=== PATIENT | female | born 1965 | race Caucasian/White ===

== ENCOUNTER 2017-07-09 03:15 | Inpatient (IN) | payer OTHER ==
[~2017-07-09] VITALS: Ht 167.6 cm; Wt 105.2 kg
[~2017-07-09 03:15] MED LIST: ASPI-1169 PO; ASPI-992 PO; BENA20TA78 PO; BLOO-697 IN; CARV6.252 PO; DIGO250T PO; FURO-145 PO; METF500T4 PO; OMEG1CAP PO; OMEP-99 PO; SPIR25TA4 PO; TRAM50TA2 PO; VITA100012 PO
[2017-07-09] MEDS ORDERED: NITROGLYCERIN PACKET 1 GM PACKET TD ONE (03:30)
--- NOTE | 2017-07-09 03:30 | NUR ---
PT RECEIVED FROM [facility] C/O SOB/LOW 02 SAT. PAIN IN THE LEFT HIP 03/10 WHEN MOVING. SOB WITH SHALLOW BREATHS. BP IS NORMAL WITH A-FIB 130-150'S. A/OX3 BUT HARD TO MAKE NEEDS KNOWN. WILL CONTINUE TO MONITOR FOR ANY CHANGES
[2017-07-09] MEDS ORDERED: DILTIAZEM HCL 25 MG IV IV STA (03:39)
[2017-07-09] MEDS ORDERED: NITROGLYCERIN PACKET 1 GM PACKET ONE (03:40)
--- NOTE | 2017-07-09 04:00 | NUR ---
PT OFF TO CT/XRAY
[2017-07-09] MEDS ORDERED: DILTIAZEM HCL 25 MG IV ONE ×3 (04:02→05:28)
[2017-07-09 04:12] LABS: BASOPHILS % (AUTO) 0.5 % (0.0-2.0); EOSINOPHILS # (AUTO) 0.5 /CMM (0.0-0.7); EOSINOPHILS % (AUTO) 6.6 % (0.0-6.0); HEMATOCRIT 32 % (33-45); HEMOGLOBIN 10.8 g/dL (11.5-14.8); LYMPHOCYTES # (AUTO) 1.4 /CMM (0.8-4.8); LYMPHOCYTES % (AUTO) 17.8 % (20.0-44.0); MEAN CORPUSCULAR HEMOGLOBIN 31 PG (26.0-33.0); MEAN CORPUSCULAR HGB CONC 34 g/dl (31.0-36.0); MEAN CORPUSCULAR VOLUME 91 fL (82-100); MONOCYTES # (AUTO) 0.5 /CMM (0.1-1.30); MONOCYTES % (AUTO) 5.9 % (2.0-12.0); NEUTROPHILS # (AUTO) 5.3 /CMM (1.8-8.9); NEUTROPHILS % (AUTO) 69.2 % (43.0-81.0); PLATELET COUNT (AUTO) 234 /CMM (150-450); RDW COEFFICIENT OF VARIATION 20.8 (11.5-15.0); WHITE BLOOD COUNT (AUTO) 7.7 K/uL (4.3-11.0)
[2017-07-09 04:22] LABS: CALCIUM, SERUM 9.6 mg/dL (8.5-10.1); CARBON DIOXIDE 24 mmol/L (21-32); CHLORIDE 99 mmol/L (98-107); CREATININE 1.8 mg/dL (0.6-1.3); GLUCOSE 139 mg/dL (74-106); POTASSIUM 5.8 mmol/L (3.5-5.1); SODIUM SERUM 136 mmol/L (136-145); UREA NITROGEN, BLOOD 31 mg/dL (7-18)
[2017-07-09 04:24] LABS: INR 1.87 (0.87-1.13); PROTHROMBIN TIME 19.6 SECS (9.5-12.7)
[2017-07-09 04:30] LABS: TROPONIN I 0.021 ng/mL (0.00-0.056)
[2017-07-09 04:35] LABS: ALANINE AMINOTRANSFERASE 66 U/L (12-78); ALBUMIN 4.1 g/dL (3.4-5.0); ALCOHOL, BLOOD < 3 mg/dL (0-0); ALKALINE PHOSPHATASE 90 U/L (46-116); ASPARTATE AMINOTRANSFERASE 81 U/L (15-37); B-TYPE NATRIURETIC PEPTIDE 13656 PG/ML (0-125); BILIRUBIN,DIRECT 0.9 mg/dL (0.0-0.2); BILIRUBIN,TOTAL 2.4 mg/dL (0.2-1.0); TOTAL PROTEIN, SERUM 7.9 g/dL (6.4-8.2)
[2017-07-09] MEDS ORDERED: ONDANSETRON HCL/PF 4 MG/2 ML VIAL ONE (04:41)
[2017-07-09] MEDS ORDERED: DEXTROSE 50%-WATER 50 ML DISP.SYRIN ONE (04:41)
[2017-07-09] MEDS ORDERED: FUROSEMIDE 40 MG/4 ML VIAL ONE (04:41)
[2017-07-09] MEDS ORDERED: SODIUM POLYSTYRENE SULFONATE 15 G/60 ML BOTTLE ONE (04:41)
[2017-07-09] MEDS ORDERED: INSULIN REGULAR, HUMAN 100 UNIT/ML 10 ML VIAL ONE (04:42)
[2017-07-09] MEDS ORDERED: DEXTROSE 50%-WATER 50 ML DISP.SYRIN IV ONE (05:00)
[2017-07-09] MEDS ORDERED: FUROSEMIDE 40 MG/4 ML VIAL IV ONE (05:00)
[2017-07-09] MEDS ORDERED: ONDANSETRON HCL/PF 4 MG/2 ML VIAL IVP ONE (05:00)
[2017-07-09] MEDS ORDERED: DILTIAZEM HCL IV 125 MG in IV D5W 100 ML IV ONE (05:00)
[2017-07-09] MEDS ORDERED: INSULIN REGULAR, HUMAN 100 UNIT/ML 10 ML VIAL IV ONE (05:00)
[2017-07-09] MEDS ORDERED: SODIUM POLYSTYRENE SULFONATE 15 G/60 ML BOTTLE PO ONE (05:00)
--- NOTE | 2017-07-09 06:08 | NUR ---
REPORT GIVEN TO STEVEN DENNIS
[2017-07-09 06:20] VITALS: BP_SYST 105; BP_SYST 146; BP_DIAS 127; BP_DIAS 63
--- NOTE | 2017-07-09 06:20 | NUR ---
WINE SPECIALIST NOTES RECEIVED PATIENT FROM ER VIA GURNEY, ASSISTED TO BED 112-2 BY STAFF, TOLERATED TRANSFER WELL. PATIENT ON O2 VIA NC @ 4LPM, TOLERATING WELL. 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 NOTED WITH LEFT AC PERIPHERAL IV #22G, PATENT AND INTACT. SKIN ASSESSMENT PERFORMED, INTACT. PLAN OF CARE DISCUSSED WITH THE PATIENT, WHO AGREES WITH THE PLAN OF CARE. AWAITING ADMISSION ORDERS. CALL LIGHT LEFT WITHIN EASY REACH, BED IN LOWEST AND LOCKED POSITION. WILL CONTINUE TO CLOSELY MONITOR.
[2017-07-09] MEDS ORDERED: DEXTROSE 50%-WATER 50 ML DISP.SYRIN IV PRN (07:00)
[2017-07-09] MEDS ORDERED: ACETAMINOPHEN 325 MG TABLET PO PRN (07:00)
[2017-07-09] MEDS ORDERED: MAG HYDROX/AL HYDROX/SIMETH 30 ML UDC PO PRN (07:00)
[2017-07-09] MEDS ORDERED: MAGNESIUM HYDROXIDE 30 ML UDC PO PRN (07:00)
[2017-07-09] MEDS ORDERED: Z GUARD REMEDY 2 OZ OINT TP PRN (07:00)
[2017-07-09] MEDS ORDERED: ONDANSETRON HCL/PF 4 MG/2 ML VIAL IVP PRN (07:00)
--- NOTE | 2017-07-09 07:10 | NUR ---
RN INITIAL NOTES: REC'D PT AWAKE ON BED, A/O X 3, C/O PAIN ON LEFT HIP 01/07. ON NC AT 4LPM, NO SOB. ON TELEMONITOR, AFIB UNCONTROLLED, HR 122 BPM. HAS L AC G22, PL, PATENT & INTACT W/ NO S/SX OF INFECTION/INFILTRATION NOTED, ON CARDIZEM DRIP X 5 MG/HR INFUSING WELL. PROVIDED COMFORT & SAFETY MEASURES. BED KEPT LOW & IN LOCKED POS. CALL LIGHT PLACED W/IN REACH. WILL CONTINUE TO MONITOR AND ATTEND PT NEEDS.
[2017-07-09 08:00] VITALS: BP 106/74
[2017-07-09] MEDS ORDERED: DILTIAZEM HCL IV 125 MG in IV D5W 100 ML IV PRN (08:30)
[2017-07-09] MEDS: PANTOPRAZOLE 40 MG TABLET.DR PO SCH (08:43)
[2017-07-09] MEDS: FUROSEMIDE 40 MG/4 ML VIAL IV SCH ×2 (08:43→21:57)
[2017-07-09] MEDS: ASPIRIN 325 MG TABLET PO SCH (08:43)
[2017-07-09] MEDS: BLOOD SUGAR DIAGNOSTIC 1 EACH STRIP VI SCH ×4 (08:43→21:59)
[2017-07-09] MEDS: INSULIN REGULAR, HUMAN 100 UNIT/ML 3 ML VIAL SQ PRN ×3 (08:47→17:36)
[2017-07-09] MEDS: HYDROCODONE/APAP 5/325MG 1 EACH TABLET PO PRN ×2 (08:53→21:59)
[2017-07-09] MEDS ORDERED: CARVEDILOL 6.25 MG TABLET PO SCH (09:00)
[2017-07-09] MEDS: DIGOXIN 0.25 MG TABLET PO SCH (09:58)
--- NOTE | 2017-07-09 11:58 | NUR ---
RN NOTES: PT SEEN & EXAMINED BY DR. BELLO. Addendum: 07/09/17 at 1230 by ANT CERON RN PER DR. BELLO, DC COREG 6.25 MG PO BID.
[2017-07-09 12:00] VITALS: BP 102/69
[2017-07-09 12:44] LABS: CALCIUM, SERUM 8.7 mg/dL (8.5-10.1); CREATININE 1.7 mg/dL (0.6-1.3); POTASSIUM 3.5 mmol/L (3.5-5.1)
--- NOTE | 2017-07-09 12:53 | NUR ---
RN NOTES: PT SEEN & EXAMINED BY DR. CARNEY W/ ORDERS TO START PT ON IVF 1/2 NS X 80 CC/HR.
[2017-07-09] MEDS: IV 1/2NS 1000 ML 1,000 ML IV PRN (13:31)
[2017-07-09] MEDS: METOPROLOL TARTRATE 25 MG TABLET PO SCH ×2 (13:33→17:39)
--- NOTE | 2017-07-09 14:00 | NUR ---
RN NOTES: PER [employer], PT IS RETAINING URINE >300 CC. SPOKE W/ THE PT AND EXPLAINED TO HER THAT SHE MIGHT BE PROBABLY RETAINING, OFFERED STRAIGHT CATH BUT PT REFUSED.
[2017-07-09 14:03] LABS: THYROID STIMULATING HORMONE 14.839 uIU/mL (0.358-3.74)
[2017-07-09 16:00] VITALS: BP 108/83
--- NOTE | 2017-07-09 17:00 | NUR ---
RN NOTES: PT SIGNED CONSENT FOR EGD, ANESTHESIA AND BLOOD TRANSFUSION. PT VERBALIZED UNDERSTANDING ABOUT THE PROCEDURES.
--- NOTE | 2017-07-09 18:50 | NUR ---
RN CLOSING NOTES: NO ACUTE CHANGES NOTED W/IN SHIFT. PT TOLERATED NC AT 3LPM, NO SOB. ON TELEMONITOR, STILL AFIB UNCONTROLLED. L AC G22, PL, KEPT PATENT & INTACT W/ NO S/SX OF INFECTION/INFILTRATION NOTED, OFF CARDIZEM DRIP, ON 07/02 NS X 80 CC/HR INFUSING WELL. KEPT WELL RESTED. PT INSTRUCTED NPO POST MIDNIGHT FOR PROCEDURE TOMORROW W/ VERBALIZATION OF UNDERSTANDING. BED KEPT LOW & IN LOCKED POS. CALL LIGHT PLACED W/IN REACH. NEEDS ATTENDED. WILL ENDORSE TO PM RN FOR CHRISTINA.
--- NOTE | 2017-07-09 19:20 | NUR ---
RN INITIAL NOTE RECEIVED PT IN NO ACUTE DISTRESS IN BED. PT IS A/O X 3 AND ABLE TO MAKE NEEDS KNOWN. PT IS ON TELE WITH AFIB ON THE MONITOR. PT IS ON O2 VIA NC @ 4LPM AND TOLERATING WELL. PT NOT C/O ANY SOB, DIFFICULTY BREATHING OR PAIN AT THIS TIME. PT HAS LAC 22G THAT IS CLEAN DRY INTACT AND PATENT WITH 1/2 NS @ 80ML/HR. BED IN LOW LOCK POSITION WITH RIALS UP X 2. CALL LIGHT WITHIN REACH AND ALL SAFETY MEASURES ENSURED AND CARRIED OUT. ALL NEEDS MET, ALL ORDERS CARRIED OUT. WILL CONTINUE TO MONITOR PT.
[2017-07-09 20:00] VITALS: BP 101/73
--- NOTE | 2017-07-09 22:00 | NUR ---
RN NOTE PT REFUSED TO HAVE EGD TOMORROW. EDUCATED PT ON IMPORTANCE OF PROCEDURE WITH RISKS AND BENEFITS. PT STILL REFUSED. WILL NOTIFY MD.
[2017-07-09] MEDS: *INSULIN REGULAR(HUMULIN R)HUM 100 UNIT/ML VIAL SQ PRN (22:08)
[2017-07-10] VITALS (7 sets, daily range): BP systolic 97–133; BP diastolic 52–89
[2017-07-10 01:14] LABS: APPEARANCE,URINE CLEAR (CLEAR); BILIRUBIN,URINE NEGATIVE (NEGATIVE); BLOOD, URINE NEGATIVE Ery/uL (NEGATIVE); COLOR,URINE YELLOW (YELLOW); KETONES,URINE NEGATIVE (NEGATIVE); LEUKOCYTE ESTERASE ,URINE NEGATIVE (NEGATIVE); NITRITE, URINE NEGATIVE (NEGATIVE); PH,URINE 5.5 (5.0-8.0); PROTEIN,URINE NEGATIVE (NEGATIVE); UGLUCOSE NEGATIVE (NEGATIVE); UROBILINOGEN,URINE 0.2 EU/dL (0.2)
[2017-07-10 01:16] LABS: CREATININE, URINE 32.6 MG/DL (30.0-125.0); URINE TOTAL PROTEIN 8.1 mg/dL (0-11.9)
[2017-07-10 02:36] LABS: EOSINOPHIL,URINE None Seen
[2017-07-10] MEDS: BLOOD SUGAR DIAGNOSTIC 1 EACH STRIP VI SCH ×4 (06:41→21:06)
[2017-07-10] MEDS: PANTOPRAZOLE 40 MG TABLET.DR PO SCH (06:41)
[2017-07-10] MEDS: METOPROLOL TARTRATE 25 MG TABLET PO SCH ×4 (06:41→17:58)
--- NOTE | 2017-07-10 07:19 | NUR ---
RN CLOSING NOTE PT REMAINS IN NO ACUTE DISTRESS IN BED. PT DID NOT HAVE ANY SIGNIFICANT CHANGE IN CONDITION DURING SHIFT. ALL NEEDS MET, ALL ORDERS CARRIED OUT. WILL ENDORSE CARE TO AM RN FOR CONTINUITY OF CARE.
--- NOTE | 2017-07-10 07:30 | NUR ---
TD RN OPENING RECEIVED PATIENT A/OX4 DENIES SOB, DIFFICULTY BREATHING AT THIS TIME. STATES CONSTANT PAIN IN HIPS. ASSISTED WITH NON PHARM MEASURES FOR COMFORT. PATIENT NEEDS IN REACH, BED LOWERED AND LOCKED. TELE ON AND OFF CONTROLLED/UNCONTROLLED 113 AFIB. PATIENT NS 4LPM WILL TITRATE TOLERATED. WILL ROUND PRN.
[2017-07-10 07:34] LABS: BASOPHILS % (AUTO) 0.4 % (0.0-2.0); EOSINOPHILS # (AUTO) 0.6 /CMM (0.0-0.7); EOSINOPHILS % (AUTO) 8.1 % (0.0-6.0); HEMATOCRIT 29 % (33-45); HEMOGLOBIN 9.9 g/dL (11.5-14.8); LYMPHOCYTES # (AUTO) 1.5 /CMM (0.8-4.8); LYMPHOCYTES % (AUTO) 21.9 % (20.0-44.0); MEAN CORPUSCULAR HEMOGLOBIN 31 PG (26.0-33.0); MEAN CORPUSCULAR HGB CONC 34 g/dl (31.0-36.0); MEAN CORPUSCULAR VOLUME 91 fL (82-100); MONOCYTES # (AUTO) 0.5 /CMM (0.1-1.30); MONOCYTES % (AUTO) 6.9 % (2.0-12.0); NEUTROPHILS # (AUTO) 4.3 /CMM (1.8-8.9); NEUTROPHILS % (AUTO) 62.7 % (43.0-81.0); PLATELET COUNT (AUTO) 227 /CMM (150-450); RDW COEFFICIENT OF VARIATION 20.9 (11.5-15.0); RED BLOOD CELL COUNT(AUTO) 3.18 MIL/uL (4.0-5.2); WHITE BLOOD COUNT (AUTO) 6.9 K/uL (4.3-11.0)
[2017-07-10 08:16] LABS: ALBUMIN 3.7 g/dL (3.4-5.0); BILIRUBIN,DIRECT 0.6 mg/dL (0.0-0.2); BILIRUBIN,TOTAL 1.6 mg/dL (0.2-1.0); CALCIUM, SERUM 8.5 mg/dL (8.5-10.1); CREATININE 1.6 mg/dL (0.6-1.3); MAGNESIUM 1.3 mg/dL (1.8-2.4); PHOSPHORUS 4.4 mg/dL (2.5-4.9); TOTAL PROTEIN, SERUM 7.5 g/dL (6.4-8.2)
[2017-07-10] MEDS: DIGOXIN 0.25 MG TABLET PO SCH (08:23)
[2017-07-10] MEDS: IV 1/2NS 1000 ML 1,000 ML IV PRN (08:23)
[2017-07-10] MEDS: ASPIRIN 325 MG TABLET PO SCH (08:23)
[2017-07-10] MEDS: FUROSEMIDE 40 MG/4 ML VIAL IV SCH ×2 (08:24→21:06)
[2017-07-10] MEDS: HYDROCODONE/APAP 5/325MG 1 EACH TABLET PO PRN ×2 (08:27→14:16)
--- NOTE | 2017-07-10 08:28 | NUR ---
TD RN NOTES PATIENT REFUSING TO HAVE AN EGD. CALLED SURGERY AND PER RN THEY DO NOT HAVE AN OPENING TODAY EVEN FOR PATIENT. CHANGED NPO TO PREVIOUS CARDIAC ORDER. WILL NOTIFY .
--- NOTE | 2017-07-10 10:21 | NUR ---
TD RN NOTES SPOKE TO PHARMACY. THEY HAVE TO BRING POTASSIUM REPLACEMENT UP. WILL HANG ONCE PROVIDED
[2017-07-10] MEDS: POTASSIUM CL. PREMIX PERIPHER. 50 ML IV SCH ×2 (11:19→13:05)
[2017-07-10] MEDS: INSULIN REGULAR, HUMAN 100 UNIT/ML 3 ML VIAL SQ PRN (11:34)
[2017-07-10] MEDS: Magnesium 1GM/D5W 100ML PREMIX 100 ML IV SCH ×2 (14:15→15:37)
--- NOTE | 2017-07-10 19:02 | NUR ---
MOTEL FRONT DESK ATTENDANT CLOSING PATIENT STALE. ALL DUE MEDS GIVEN AND ALL NEEDS MET. PATIENT PAIN CONTROLLED WITH PRN MEDICATIONS AND NON PHARM MEASURES. PATIENT NEEDS IN REACH. BED LOWERED AND LOCKED, RAILS UPX3 FOR SAFETY AND BED ALARM ON. CARE WILL BE ENDORSED TO RN FOR CHRISTINA
[2017-07-10] MEDS: *INSULIN REGULAR(HUMULIN R)HUM 100 UNIT/ML VIAL SQ PRN (21:08)
[2017-07-11] VITALS: BP 110/52
[2017-07-11] MEDS: METOPROLOL TARTRATE 25 MG TABLET PO SCH ×3 (00:09→13:29)
[2017-07-11 04:00] VITALS: BP 112/81
[2017-07-11] MEDS: HYDROCODONE/APAP 5/325MG 1 EACH TABLET PO PRN ×2 (05:41→12:00)
--- NOTE | 2017-07-11 06:53 | NUR ---
RN NOTE PT REMAINS IN NO ACUTE DISTRESS IN BED. PT DID NOT HAVE ANY SIGNIFICANT CHANGE IN CONDITION DURING SHIFT. ALL NEEDS MET, ALL ORDERS CARRIED OUT. WILL ENDORSE CARE TO AM RN FOR CONTINUITY OF CARE.
--- NOTE | 2017-07-11 07:30 | NUR ---
RN NOTES; PT RECEIVED ALERT AWAKE ORIENTED. ON ROOM AIR. NO BREATHING DIFFICULTY NOTED. SAFETY MEASURES OBSERVED. CALL LIGHT WITHIN REACH. WILL CONTINUE TO MONITOR,
[2017-07-11 08:00] VITALS: BP 93/72
[2017-07-11] MEDS: FUROSEMIDE 40 MG/4 ML VIAL IV SCH (08:50)
[2017-07-11] MEDS: PANTOPRAZOLE 40 MG TABLET.DR PO SCH (08:50)
[2017-07-11] MEDS: DIGOXIN 0.25 MG TABLET PO SCH (08:50)
[2017-07-11] MEDS: ASPIRIN 325 MG TABLET PO SCH (08:50)
[2017-07-11] MEDS: BLOOD SUGAR DIAGNOSTIC 1 EACH STRIP VI SCH ×2 (08:51→12:02)
[2017-07-11] MEDS: INSULIN REGULAR, HUMAN 100 UNIT/ML 3 ML VIAL SQ PRN (08:52)
[2017-07-11 11:27] LABS: ALBUMIN 3.7 g/dL (3.4-5.0); BILIRUBIN,TOTAL 1.2 mg/dL (0.2-1.0); CALCIUM, SERUM 8.3 mg/dL (8.5-10.1); CREATININE 1.3 mg/dL (0.6-1.3); MAGNESIUM 1.4 mg/dL (1.8-2.4); PHOSPHORUS 3.1 mg/dL (2.5-4.9); POTASSIUM 3.2 mmol/L (3.5-5.1); TOTAL PROTEIN, SERUM 7.5 g/dL (6.4-8.2)
[2017-07-11 12:00] VITALS: BP 105/69
[2017-07-11 12:27] LABS: BASOPHILS % (AUTO) 0.4 % (0.0-2.0); EOSINOPHILS # (AUTO) 0.5 /CMM (0.0-0.7); EOSINOPHILS % (AUTO) 7.7 % (0.0-6.0); HEMATOCRIT 29 % (33-45); HEMOGLOBIN 10.1 g/dL (11.5-14.8); LYMPHOCYTES # (AUTO) 0.9 /CMM (0.8-4.8); LYMPHOCYTES % (AUTO) 14.2 % (20.0-44.0); MEAN CORPUSCULAR HEMOGLOBIN 31 PG (26.0-33.0); MEAN CORPUSCULAR HGB CONC 35 g/dl (31.0-36.0); MEAN CORPUSCULAR VOLUME 91 fL (82-100); MONOCYTES # (AUTO) 0.4 /CMM (0.1-1.30); MONOCYTES % (AUTO) 6.2 % (2.0-12.0); NEUTROPHILS # (AUTO) 4.4 /CMM (1.8-8.9); NEUTROPHILS % (AUTO) 71.5 % (43.0-81.0); PLATELET COUNT (AUTO) 226 /CMM (150-450); RDW COEFFICIENT OF VARIATION 20.7 (11.5-15.0); RED BLOOD CELL COUNT(AUTO) 3.23 MIL/uL (4.0-5.2); WHITE BLOOD COUNT (AUTO) 6.2 K/uL (4.3-11.0)
[2017-07-11 16:00] VITALS: BP 94/73
--- NOTE | 2017-07-11 18:00 | NUR ---
1030: SPOKE WITH DR. BELLO TO CLARIFY IV FLUIDS ORDER. 1400: RECEIVED ORDERS TO DISCHARGE TO HOME. SPOKE WITH PATIENT & DAUGHTER JUSTUS. 1800: PATIENT LEFT WITH DAUGHTER JUSTUS WITH ALL BELONGINGS. DENIES PAIN & DISCOMFORT DURING DISCHARGE. DISCHARGE INSTRUCTIONS & PRESCRIPTION GIVEN TO DAUGHTER & PATIENT AT BEDSIDE. VERBALIZE TO UNDERSTAND. FLU VACCINE REFUSED BY PATIENT. SKIN INTACT. IV CATHETER REMOVED. PRESSURE DRESSING APPLIED.
[2017-07-12 17:35] LABS: *SPE A/G RATIO 1.1 (0.7-1.7); *SPE ALBUMIN 3.5 g/dL (2.9-4.4); *SPE ALPHA-1-GLOBULIN 0.2 g/dL (0.0-0.4); *SPE ALPHA-2-GLOBULIN 0.7 g/dL (0.4-1.0); *SPE BETA GLOBULIN 0.9 g/dL (0.7-1.3); *SPE GLOBULIN, TOTAL 3.1 g/dL (2.2-3.9); *SPE M-SPIKE 0.7 g/dL (Not Observed); *SPEGAMMA GLOBULIN 1.2 g/dL (0.4-1.8)
== END 2017-07-11 18:00 | disposition home or self-care (01) | DRG 194 ==
LOC: ER 03:17 → TELE-TD 05:45 → TELE1 07-10 11:21
PROVIDERS: ADMIT Internal Medicine; ATTEND Internal Medicine
DX: I11.0 Hypertensive heart disease with heart failure (principal); N17.0 Acute kidney failure with tubular necrosis; E87.1 Hypo-osmolality and hyponatremia; K92.2 Gastrointestinal hemorrhage, unspecified; E86.0 Dehydration; E87.5 Hyperkalemia; K74.60 Unspecified cirrhosis of liver; I48.91 Unspecified atrial fibrillation; I50.23 Acute on chronic systolic (congestive) heart failure; E11.9 Type 2 diabetes mellitus without complications; D63.8 Anemia in other chronic diseases classified elsewhere; F15.90 Other stimulant use, unspecified, uncomplicated; I25.10 Atherosclerotic heart disease of native coronary artery without angina pectoris; Z79.01 Long term (current) use of anticoagulants; M16.12 Unilateral primary osteoarthritis, left hip; Z79.84 Long term (current) use of oral hypoglycemic drugs; K76.0 Fatty (change of) liver, not elsewhere classified; E80.6 Other disorders of bilirubin metabolism; Z79.1 Long term (current) use of non-steroidal anti-inflammatories (NSAID)
CPT/HCPCS: 36415; 71045-TC; 72170-TC; 76705-TC; 76770-TC; 80048-TC; 80053-TC; 80076-TC; 80162-TC; 81000-TC; 82550-TC; 82570-TC; 82728-TC; 82962-TC; 83540-TC; 83735-TC; 83880; 83970; 84100-TC; 84155; 84155-TC; 84165; 84300-TC; 84439-TC; 84443-TC; 84484-TC; 85025-TC; 85730-TC; 86850-TC; 87081-TC; 93307-TC; A4606; G0480; J1815; J1940; J2405; J3475; J3480; J3490; J7040; J7060; Z7610